=== PATIENT | male | born 1990 | race Hispanic/Latino ===

== ENCOUNTER 2018-04-21 07:00 | Emergency (ER) | payer OTHER ==
[~2018-04-21] VITALS: Ht 177.8 cm; Wt 104.5 kg
[2018-04-21] MEDS ORDERED: MUCI120T PO (07:10)
[2018-04-21] MEDS ORDERED: ACET1TAB55 PO (07:10)
[2018-04-21] MEDS ORDERED: IPRATROPIUM 0.5MG/ALBUTEROL 2.5MG INH SOL UD 3ML (DUONEB)(J7620) NEB ONE (07:45)
[2018-04-21] MEDS ORDERED: ALBUTEROL SULFATE 2.5 MG/0.5 ML INH NEB SOLN INH ONE (07:45)
[2018-04-21 08:09] LABS: BASO % 0.4 % (0.0-1.0); EOS # 0.1 10^3/uL (0.0-0.50); EOS % 1.6 % (0.0-3.0); HEMATOCRIT 46.8 % (42.0-52.0); HEMOGLOBIN 15.3 g/dl (13.5-17.5); LYMPH % 40.7 % (24.0-44.0); MEAN CORPUSCULAR HEMOGLOBIN 30.1 pg (27.0-33.0); MEAN CORPUSCULAR HGB CONC 32.7 g/dl (32.0-36.5); MEAN CORPUSCULAR VOLUME 92.1 fl (80.0-96.0); MONO # 0.3 10^3/uL (0.0-0.8); MONO % 6.5 % (0.0-5.0); NEUTROPHILS # 2.5 10^3/uL (1.8-7.7); NEUTROPHILS % 50.4 % (36.0-66.0); PLATELET COUNT, AUTOMATED 212 10^3/uL (150-450); RED BLOOD COUNT 5.08 10^6/uL (4.30-6.10); WHITE BLOOD COUNT 4.9 10^3/uL (4.0-10.0)
--- NOTE | 2018-04-21 08:18 | REP ---
Clinical: Hemoptysis with cough and wheeze . Comparison: None . Technique: PA and lateral. Findings: The mediastinum and cardiac silhouette are normal. The lung lane are clear and without acute consolidation, effusion, or pneumothorax. The skeletal structures are intact and normal. Impression: 1. No acute cardiopulmonary process. No focal consolidation or effusion. Electronically Signed by Artis Poole MD 04/21/2018 08:10 A
[2018-04-21 08:20] LABS: INR 0.9; PROTHROMBIN TIME 12.2 SECONDS (12.1-14.4)
[2018-04-21 08:21] LABS: PARTIAL THROMBOPLASTIN TIME 29.6 SECONDS (25.4-37.6)
[2018-04-21 08:29] LABS: BLOOD UREA NITROGEN 10 MG/DL (7-18); CALCIUM LEVEL 8.6 MG/DL (8.5-10.1); CARBON DIOXIDE LEVEL 30 MEQ/L (21-32); CHLORIDE LEVEL 104 MEQ/L (98-107); CREATININE FOR GFR 0.94 MG/DL (0.70-1.30); GLOMERULAR FILTRATION RATE > 60.0 (>60); GLUCOSE, FASTING 94 MG/DL (70-100); POTASSIUM SERUM 4.2 MEQ/L (3.5-5.1); SODIUM LEVEL 140 MEQ/L (136-145)
[2018-04-21] MEDS ORDERED: BENZ200C70 PO (09:07)
[2018-04-21] MEDS ORDERED: DOXY100C37 PO (09:07)
[2018-04-21] MEDS ORDERED: VENTAER INH (09:07)
[2018-04-21 09:08] VITALS: BP 141/66
== END 2018-04-21 09:11 | disposition home or self-care (01) ==
LOC: M ED 07:00
DX: J20.9 Acute bronchitis, unspecified (principal); R04.2 Hemoptysis; Z87.891 Personal history of nicotine dependence

== ENCOUNTER 2018-11-12 09:32 | Emergency (ER) | payer OTHER ==
[~2018-11-12] VITALS: Ht 177.8 cm; Wt 100.0 kg
[~2018-11-12 09:32] MED LIST: ACET1TAB55 PO; BENZ200C70 PO; DOXY100C37 PO; MUCI120T PO; VENTAER INH
[2018-11-12 11:01] LABS: INFLUENZA A AMPLIFICATION NEGATIVE (NEGATIVE); INFLUENZA B AMPLIFICATION NEGATIVE (NEGATIVE)
[2018-11-12 12:30] LABS: BASO % 0.4 % (0.0-1.0); EOS % 0.4 % (0.0-3.0); HEMATOCRIT 49.3 % (42.0-52.0); LYMPH # 1.1 10^3/uL (1.5-5.0); MEAN CORPUSCULAR HEMOGLOBIN 30.4 pg (27.0-33.0); MEAN CORPUSCULAR HGB CONC 32.5 g/dl (32.0-36.5); MEAN CORPUSCULAR VOLUME 93.5 fl (80.0-96.0); MONO % 9.5 % (0.0-5.0); NEUTROPHILS # 7.9 10^3/uL (1.5-8.5); NEUTROPHILS % 78.3 % (36.0-66.0); PLATELET COUNT, AUTOMATED 200 10^3/uL (150-450); RED BLOOD COUNT 5.27 10^6/uL (4.30-6.10)
[2018-11-12] MEDS ORDERED: NS 1,000 ML IV ONE (12:30)
[2018-11-12 13:02] LABS: BLOOD UREA NITROGEN 13 MG/DL (7-18); CALCIUM LEVEL 9.3 MG/DL (8.5-10.1); CARBON DIOXIDE LEVEL 33 MEQ/L (21-32); CHLORIDE LEVEL 100 MEQ/L (98-107); CPK CREATINE PHOSPHOKINASE 281 U/L (39-308); GLOMERULAR FILTRATION RATE > 60.0 (>60); GLUCOSE, FASTING 89 MG/DL (70-100); POTASSIUM SERUM 4.6 MEQ/L (3.5-5.1); SODIUM LEVEL 138 MEQ/L (136-145); THYROID STIMULATING HORMONE 0.322 uIU/ML (0.358-3.740)
[2018-11-12] MEDS ORDERED: MECLIZINE 25 MG TABLET PO ONE (14:30)
[2018-11-12] MEDS ORDERED: ISOVUE-370 76% 100ML VIAL (Q9967) As Ordered ONE ×2 (14:30→14:39)
[2018-11-12] MEDS ORDERED: LEVA750T7 PO (15:43)
[2018-11-12 15:51] LABS: CK-MB VALUE MASS 1.1 NG/ML (<3.6); MB/CK RELATIVE INDEX 0.39 (< OR =4); TROPONIN I < 0.02 NG/ML (< 0.10)
[2018-11-12 16:03] VITALS: BP 136/64
[2018-11-12] MEDS ORDERED: LevoFLOXacin 750 MG TABLET PO ONE (16:30)
--- NOTE | 2018-11-12 16:47 | REP ---
HISTORY: Cough and elevated D-dimer. Potential pulmonary embolus. 100 mL Isovue-370 was utilized. There is good visualization of the pulmonary arterial vasculature. There are no focal filling defects present that would be considered consistent with pulmonary emboli. There are no pleural or pericardial effusions. There is mild left hilar adenopathy. In the superior segment of the left lower lobe, there is a large approximately 3.2 x 4.5 x 5 cm sized opacity. The imaged upper abdomen and imaged osseous structures are within normal limits. Note is made of a simple cyst in the superior pole of the left kidney which measures 2 cm. IMPRESSION: 1. Left lower lobe pneumonia as described above. 2. There is reactive left hilar adenopathy. 3. Simple left renal cyst. Electronically Signed by Aureliano Watson DO 11/12/2018 05:05 P
--- NOTE | 2018-11-12 20:45 | ECGEPIP ---
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
== END 2018-11-12 16:24 | disposition home or self-care (01) ==
LOC: M ED 09:32
DX: J18.9 Pneumonia, unspecified organism (principal); R51 Headache; R53.1 Weakness; R42 Dizziness and giddiness; N28.1 Cyst of kidney, acquired
CPT/HCPCS: 71275; 80048; 82550; 82553; 84443; 84484; 85025; 85379; 87502; 93005; 99284; Q9967